=== PATIENT | female | born 1980 | race Caucasian/White ===

== ENCOUNTER 2019-05-04 10:12 | Outpatient (CLI) | payer OTHER ==
--- NOTE | 2019-05-04 10:54 | MMO ---
Bilateral MAMMO Bilat Screen DDI. CLINICAL HISTORY: Patient is 38 years old and is seen for screening. The patient has no family history of breast cancer. The patient has no personal history of cancer. VIEWS: The views performed were: bilateral craniocaudal and bilateral mediolateral oblique. This study has been interpreted with the assistance of computer-aided detection. MAMMOGRAM FINDINGS: The breasts are heterogeneously dense, which could obscure a lesion on mammography. There are amorphous or indistinct calcifications with grouped or clustered distribution seen in the middle central region of the left breast. In the right breast, there are no suspicious masses, calcifications or areas of architectural distortion. IMPRESSION: CALCIFICATIONS IN THE LEFT BREAST REQUIRE ADDITIONAL EVALUATION. MAGNIFICATION VIEWS ARE RECOMMENDED. ACR BI-RADS Category 0 - Incomplete: Need additional imaging evaluation. [facility] will notify the patient of the need for additional imaging services. MAMMOGRAPHY NOTE: 1. A negative mammogram report should not delay a biopsy if a dominant of clinically suspicious mass is present. 2. Approximately 10% to 15% of breast cancers are not detected by mammography. 3. Adenosis and dense breasts may obscure an underlying neoplasm.
== END 2019-05-04 10:13 | disposition home or self-care (01) ==
LOC: SCSMAMMO 10:12
PROVIDERS: ATTEND Family Medicine
DX: Z12.31 Encounter for screening mammogram for malignant neoplasm of breast (principal); R92.1 Mammographic calcification found on diagnostic imaging of breast
CPT/HCPCS: 77067

== ENCOUNTER 2019-05-09 09:51 | Outpatient (CLI) | payer OTHER ==
--- NOTE | 2019-05-09 10:41 | MMO ---
Left Breast MAMMO Unilat Diag DDI LT+ROSSY. CLINICAL HISTORY: Patient is 38 years old and is seen for additional evaluation requested at current screening. The patient has no family history of breast cancer. The patient has no personal history of cancer. VIEWS: The views performed were: left craniocaudal spot compression magnification; left mediolateral spot compression magnification; and left mediolateral with tomosynthesis. FILMS COMPARED: The present examination has been compared to a prior imaging study performed at [facility] on 05/04/2019. MAMMOGRAM FINDINGS: The breast is heterogeneously dense, which could obscure a lesion on mammography. There are calcifications with grouped or clustered distribution seen in the left breast at 3 o'clock. IMPRESSION: CALCIFICATIONS IN THE LEFT BREAST ARE SUSPICIOUS. A STEREOTACTIC BREAST BIOPSY IS RECOMMENDED. THE RESULTS OF THIS EXAM WERE SENT TO THE PATIENT. ACR BI-RADS Category 4 - Suspicious abnormality - biopsy should be considered MAMMOGRAPHY NOTE: 1. A negative mammogram report should not delay a biopsy if a dominant of clinically suspicious mass is present. 2. Approximately 10% to 15% of breast cancers are not detected by mammography. 3. Adenosis and dense breasts may obscure an underlying neoplasm.
== END 2019-05-09 09:52 | disposition home or self-care (01) ==
LOC: BICMAMMO 09:51
PROVIDERS: ATTEND Family Medicine
DX: R92.1 Mammographic calcification found on diagnostic imaging of breast (principal)
CPT/HCPCS: G0279

== ENCOUNTER → 2019-05-16 | Day surgery (SDC) | payer OTHER ==
--- NOTE | 2019-05-16 12:42 | MMO ---
STEREOTACTIC BIOPSY: HISTORY: Left breast calcification. Stereotactic biopsy requested. COMPARISON: 05/09/2019, 05/04/2019. FINDINGS: Successful left breast stereotactic biopsy. Postprocedure images demonstrate decreased calcification s. Clip position appears to be appropriate. Surgical specimen does not demonstrate any calcifications. However, the calcifications were very ramses nt. Final pathologic diagnosis is pending. TECHNIQUE: Consent was obtained to perform a left breast stereotactic biopsy. The patient was placed in a prone position on the stereotactic biopsy table. Through a hole, the left breast was compressed in a late ral medial orientation. Calcifications were identified. The skin was prepped and draped in sterile fashion. 1% Lidocaine, buffered with sodium bicarbonate, was used for local anesthesia. Needle posi tion with respect to calcification was determined per- and post-firing. Stereotactic biopsy was perf ormed. A total of twelve 0-gauge core biopsy samples were obtained. The initial 6 samples were radi ographed and subtle calcification may be present. The second set of samples was also radiographed b ut definite calcifications were not appreciated. Hemostasis was achieved with manual pressure. Postprocedure mammogram was performed. There are less calcifications present on the MLO projection. Calcifications are not definitely appreciated on the CC projection. Biopsy clip is appropriately po sitioned. IMPRESSION: Successful left breast stereotactic biopsy. Biopsy clip was placed. Final pathologic diagnosis pend ing. POS: OFF
== END ==
LOC: MAMMO 07:07
PROVIDERS: ATTEND Family Medicine
PROC: 0HBU3ZX Excision of Left Breast, Percutaneous Approach, Diagnostic (ICD-10-PCS; principal; 2019-05-16)
DX: N60.12 Diffuse cystic mastopathy of left breast (principal); N60.22 Fibroadenosis of left breast
CPT/HCPCS: 19081; 76098; 88305

== ENCOUNTER 2019-06-05 06:58 | Day surgery (SDC) | payer OTHER ==
[2019-06-04 10:43] VITALS: BMI 24.5
--- NOTE | 2019-06-05 08:12 | MMO ---
Exam: LEFT BREAST NEEDLE LOCALIZATION WITH MAMMOGRAPHY: HISTORY: Left breast calcifications. COMPARISON: 05/16/2019, 05/09/2019. FINDINGS: Successful left breast needle localization. 7.5 cm [place] needle and wire were advanced into the left breast via a lateral medial approach. The Mimbres needle and wire are adjacent to the clip and calcifications. Films are marked in the CC and lateral projection. TECHNIQUE: Consent obtained to perform a left breast needle localization for surgical excision of jovany cifications. The lateral approach was deemed appropriate. Skin was prepped and draped in sterile fashion. 1% lidocaine, buffered with sodium bicarbonate was used for local anesthesia. [facility], a 7.5 cm Mimbres needle and wire were advanced into the left breast via a lateral medial approach. Images were obtained. Clip and calcifications were identified. Images were obtained in the CC projection. Mimbres needle and wire were deemed appropriate in terms of their position and the wire was deployed. Post deployment images were obtained. Patient tolerated the procedure well. No immediate or postprocedural complications. IMPRESSION: Successful needle localization with mammography. Transcribed Date/Time: 06/05/2019 8:38 AM
[2019-06-05] MEDS ORDERED: Bupivacaine/Epinephrine 0.25% 30 ML VIAL ONE (09:29)
[2019-06-05] MEDS ORDERED: Lidocaine 2% PF 5 ML VIAL ONE (09:29)
[2019-06-05] MEDS ORDERED: Lidocaine 2% Jelly 5 ML TUBE ONE (10:08)
[2019-06-05] MEDS ORDERED: Midazolam HCl 2 mg/2 ml Vial ONE (10:08)
[2019-06-05] MEDS ORDERED: Fentanyl 100 MCG/2 ML VIAL ONE (10:08)
--- NOTE | 2019-06-05 12:27 | MMO ---
One view specimen radiograph: Single specimen radiograph demonstrates the [place] wire, biopsy clip and calcifications. IMPRESSION: Single sample with calcifications present. Findings were conveyed by Dr. More to the OR at the time of presentation Transcribed Date/Time: 06/05/2019 12:34 PM
[2019-06-05] MEDS ORDERED: Ondansetron PF 4 MG/2 ML Vial ONE (14:37)
[2019-06-05] MEDS ORDERED: ePHEDrine 50 MG/ML VIAL ONE (14:37)
[2019-06-05] MEDS ORDERED: PROPOFOL 200 MG/20 ML VIAL ONE (14:37)
[2019-06-05] MEDS ORDERED: Dexamethasone 20 MG/5 ML VIAL ONE (14:37)
[2019-06-05] MEDS ORDERED: Lidocaine 1% PF 5 ML VIAL ONE (14:37)
--- NOTE | 2019-06-05 17:45 | OP ---
DATE OF PROCEDURE: 06/05/2019 PREOPERATIVE DIAGNOSIS: Left breast mass (abnormal microcalcifications). POSTOPERATIVE DIAGNOSIS: Left breast mass (abnormal microcalcifications). PROCEDURE PERFORMED: Excision of left breast mass with preop placement of needle localization wire. ANESTHESIA: General. ESTIMATED BLOOD LOSS: Minimal. COMPLICATIONS: None. SPECIMEN: Marked with two short superior, one long lateral, sent to Path for final diagnosis. Specimen x-ray revealed the clip to be in the specimen. DESCRIPTION OF PROCEDURE: The patient had undergone preop placement of needle localization wire, taken to the operating room and laid supine on the operating room table. After general anesthetic was obtained, the left breast was prepped and draped in a sterile fashion. An incision was made along the left areolar edge on the medial aspect. Flaps were raised superior medially and inferior laterally around the end of needle localization wire. The specimen was marked with two short superior, one long lateral, and sent to specimen x-ray, which revealed the clip to be in the specimen. It was then sent to Pathology for final diagnosis. The wound was irrigated. Local anesthetic was applied. The wound was closed using 3-0 Vicryl, 4-0 Monocryl, and Dermabond. The patient was sent to Recovery in stable condition. All instrument counts, needle counts, and lap counts were correct. Job ID: [id number]
== END 2019-06-05 12:55 | disposition home or self-care (01) ==
LOC: SDC 06:58
PROVIDERS: ATTEND Surgery
PROC: 0HBU0ZZ Excision of Left Breast, Open Approach (ICD-10-PCS; principal; 2019-06-05)
DX: N60.22 Fibroadenosis of left breast (principal); D24.2 Benign neoplasm of left breast; F32.9 Major depressive disorder, single episode, unspecified; F32.81 Premenstrual dysphoric disorder; E03.9 Hypothyroidism, unspecified; Z79.899 Other long term (current) drug therapy; Z88.2 Allergy status to sulfonamides; Z88.8 Allergy status to other drugs, medicaments and biological substances
CPT/HCPCS: 19281; 76098; 88307; J0690; J1100; J2001; J2250; J2405; J2704; J3010; J3490

== ENCOUNTER 2021-08-21 11:54 | Outpatient (CLI) | payer OTHER | END 2021-08-21 11:55 | disposition home or self-care (01) | LOC: BICMAMMO 11:54 | PROVIDERS: ATTEND Family Medicine | DX: Z12.31 Encounter for screening mammogram for malignant neoplasm of breast (principal) | CPT/HCPCS: 77063; 77067 ==

== ENCOUNTER 2022-08-23 11:30 | Outpatient (CLI) | payer BC | END 2022-08-23 11:31 | disposition home or self-care (01) | LOC: BICMAMMO 11:30 | PROVIDERS: ATTEND Family Medicine | DX: Z12.31 Encounter for screening mammogram for malignant neoplasm of breast (principal); Z87.898 Personal history of other specified conditions | CPT/HCPCS: 77063; 77067 ==

== ENCOUNTER 2023-06-03 10:52 | Outpatient (CLI) | payer BC ==
[~2023-06-03 10:52] MED LIST: Iopamidol 370 76% 100 ML VIAL ONE
== END 2023-06-03 10:53 | disposition home or self-care (01) ==
LOC: BICCT 10:52
PROVIDERS: ATTEND Family Medicine
DX: R10.32 Left lower quadrant pain (principal); R19.7 Diarrhea, unspecified
CPT/HCPCS: 74177; Q9967

== ENCOUNTER 2023-10-19 12:40 | Outpatient (CLI) | payer BC | END 2023-10-19 12:41 | disposition home or self-care (01) | LOC: BICMAMMO 12:40 | PROVIDERS: ATTEND Family Medicine | DX: Z12.31 Encounter for screening mammogram for malignant neoplasm of breast (principal); Z91.89 Other specified personal risk factors, not elsewhere classified | CPT/HCPCS: 77063; 77067 ==

== ENCOUNTER 2024-10-23 12:33 | Outpatient (CLI) | payer BC | END 2024-10-23 12:34 | disposition home or self-care (01) | LOC: BICMAMMO 12:33 | PROVIDERS: ATTEND Family Medicine | DX: Z12.31 Encounter for screening mammogram for malignant neoplasm of breast (principal); Z91.89 Other specified personal risk factors, not elsewhere classified | CPT/HCPCS: 77063; 77067 ==